=== PATIENT | female | born 1980 | race Caucasian/White ===

== ENCOUNTER 2016-08-22 16:37 | Emergency (ER) | payer OTHER ==
[~2016-08-22] VITALS: Ht 134.6 cm; Wt 54.5 kg
[2016-08-22 16:49] VITALS: BP 110/75; PULSE 94; RESP 20; O2SAT 98
[2016-08-22 17:54] LABS: APPEARANCE,URINE CLEAR (CLEAR,HAZY); COLOR,URINE YELLOW (YELLOW); OCCULT BLOOD,URINE NEGATIVE (NEGATIVE); PH,URINE 5.5 (5.0-8.0); UROBILINOGEN,URINE NORMAL (NORMAL)
--- NOTE | 2016-08-22 18:12 | ED.REPORT ---
HPI-Trauma Minor / Fall Date of Service Aug 22, 2016 ED Provider: Jem Whitney DO Pt is a 35 year old female with a history of spinal stenosis and dwarfism who presents to the ED complaining of low back pain after multiple ground falls yesterday and today. She denies decreased urination, bowel incontinence, decreased leg sensation, difficult walking, and any other symptoms. The pt reports that she fell 2x yesterday, and 2x today because her leg gave out, prompting her to call her nurse. She was advised to come to the ER. Pt reports that the pain is currently rating at 5/10, but is normally 3/10. Nursing Notes Stated Complaint: GLF- SPINAL STENOSIS Chief Complaint: Multiple Trauma/Fall Nursing Notes Reviewed: Yes Allergies: Coded Allergies: latex (Verified Allergy, Severe, rash, 08/22/16) naproxen (Verified Allergy, Severe, hallucinations, 08/22/16) sumatriptan (Verified Allergy, Severe, HTN, 08/22/16) General Time Seen by MD: 18:11 Chief Complaint Fall Hx Obtained From: Patient Arrived By: Walk-in Onset Occurred: Yesterday Symptom Duration: Intermittent Severity: Current: Pain level 5 out of 10 Severity: Maximum: Moderate Recent Healthcare: No recent doctor visit, No recent hospitalization Similar Sx Previous: Yes Past Medical History Past Medical History Spinal stenosis Dwarfism Asthma Denies: Congestive heart failure, Diabetes mellitus, Hypertension Past Surgical History Bilateral legs Left arm Left thumb Jaw Smoking History Unknown if Ever Smoker Social History Alcohol Use: Denies alcohol use Drug Use: Denies drug use Ambulatory Status Independent Review of Systems Constitutional: Denies: Fever Respiratory: Denies: Non-productive cough, Shortness of breath Musculoskeletal: Reports: Back pain, Denies: Extremity pain Complete sys rev & neg: except as marked. Physical Exam Initial Vital Signs Vital Signs (First) Date Time Temp Pulse Resp B/P Pulse Ox O2 Delivery O2 Flow Rate FiO2 08/22/16 16:49 36.6 94 20 110/75 98 Room Air Initial VS: Reviewed Head / Eyes: Atraumatic, Normocephalic, PERRL ENT: Mucous membranes moist, Conjunctiva normal, No scleral icterus Respiratory: Breath sounds normal, Clear to auscultation, No respiratory distress Cardiovascular: Regular rate & rhythm, Heart sounds normal, Intact distal pulses Abdomen / GI: Soft, Non-tender Extremities: Vascular intact, Neuro intact Skin: Warm, Dry, No cyanosis Neurologic: Alert, Oriented, Nonfocal Psychiatric: Mood/affect normal, Behavior normal General/Constitutional: Awake, Alert, Cooperative, Not toxic appearing Neck: Atraumatic, Full range of motion Back: Full range of motion Low back pain but no mylopathy. Interpretation & Diagnostics Lab Results Interpretation Test 08/22/16 17:33 Urine Color Yellow (YELLOW) Urine Appearance Clear (CLEAR,HAZY) Urine pH 5.5 (5.0-8.0) Urine Specific Talent 1.015 (1.003-1.035) Urine Protein Negativemg/dL (NEG,TRACE) Urine Glucose (UA) Negativemg/dL (NEGATIVE) Urine Ketones Negativemg/dL (NEGATIVE) Urine Occult Blood Negative (NEGATIVE) Urine Nitrite Negative (NEGATIVE) Urine Bilirubin Negative (NEGATIVE) Urine Urobilinogen Normalmg/dL (NORMAL) Urine Leukocyte Esterase Negative (NEGATIVE) Urine RBC 0-2/hpf (0-2) Urine WBC 0-5/hpf (0-5) Urine Epithelial Cells Occasional/hpf (NONE-MOD) Urine Crystals None seen (NONE SEEN) Urine Bacteria Few/hpf (NONE-FEW) Urine Hyaline Casts None/lpf (NONE) Urine Granular Casts None seen (NONE SEEN) Urine Waxy Casts None seen (NONE SEEN) Urine Red Blood Cell Casts None seen (NONE SEEN) Urine White Blood Cell Casts None seen (NONE SEEN) Urine Mucus Present (None Seen) Urine Trichomonas None seen (NONE SEEN) Urine Yeast None (NONE SEEN) Urinalysis Comment None Urine Culture Reflexed Not indicated X-Ray Interpretation Xray Interpretation: IMPRESSION: No acute fractures Dictated by: Phillip Salomon M.D. on 08/22/2016 at 18:40 Study Performed: LUMBAR SPINE, 2 or 3 VIEW Interpretation / Wet Read by: Interpret - Radiologist Re-Eval/Medical Decision Med Decision/Clinical Course No signs of cord syndrome or myelopathy. Low risk for infection. No IMDA, point tenderness or fever. xray normal. Pain controlled well with Toradol. Short course of Arcadia for break through pain. Close follow up. Routine opiate warnings given. Source of Hx: Old records Re-Evaluation/Progress : Time of Eval: 19:05 Patient Status: Condition improved Re-Evaluation/Progress Note: Pt rechecked. She is feeling better with her treatment. Informed pt of plan for discharge. Pt understands and agrees with plan for discharge. F/U instructions and RTER warnings given. All questions addressed. Counseled Regarding: Diagnosis, Lab results, Need for follow-up, When/why to return to ED Discharge & Departure Shift Change Sign-Out Response to Therapy: Improved Impression: Primary Impression: Fall Encounter type: initial encounter Qualified Code: W19.XXXA - Unspecified fall, initial encounter Additional Impressions: Low back pain Chronicity: unspecified Back pain laterality: unspecified Sciatica presence : unspecified whether sciatica present Qualified Code: M54.5 - Low back pain Spinal stenosis Spinal region: unspecified Qualified Code: M48.00 - Spinal stenosis, site unspecified Disposition: Home Discharge Condition All VS Reviewed: Yes Condition: Stable Patient Instructions: Fall Prevention (ED), Lumbar Spinal Stenosis (ED) Additional Instructions: Your x-rays did not show any signs of fracture, and there are not signs that you have cord syndrome. Take Motrin for the pain as directed. Take Arcadia 1-2 every 6 hours as needed. Do not drive or drink alcohol or consume acetaminophen while on Arcadia. This is an opiate and can be habit forming , so use it sparingly. Call your doctor tomorrow for a follow up appointment. Return to the Emergency Department for any new or worsening symptoms. Referrals: OTHER,PHYSICIAN (PCP) [facility] [place] Attestation Portions of this note were transcribed by Kennedi Winchester. I, Dr. Whitney personally performed the history, physical exam and medical decision-making; I reviewed and confirmed the accuracy of the information in the transcribed note. Signed by: Tayler Huang, 08/22/16 and 19:30. copies to: [facility] Jme Whitney DO Aug 22, 2016 18:12 Kennedi Mckeon Aug 22, 2016 18:20
--- NOTE | 2016-08-22 18:49 | DRSVH ---
PROCEDURE: X-RAY LUMBAR SPINE, 2 OR 3 VIEW INDICATIONS: fall, spinal stenosis, low back pain TECHNIQUE: 3 views of the lumbar spine were acquired. COMPARISON: None. FINDINGS: Bones: Soft tissues: Overlying bowel gas pattern is normal. No suspicious soft tissue calcifications. IMPRESSION: No acute fractures Dictated by: Phillip Salomon M.D. on 08/22/2016 at 18:40 Approved by: Phillip Salomon M.D. on 08/22/2016 at 18:41
[2016-08-22 19:10] VITALS: BP 115/71; PULSE 90; RESP 18; O2SAT 99
[2016-08-22 19:21] VITALS: BP 115/71; PULSE 90; RESP 18; O2SAT 99
== END 2016-08-22 19:22 | disposition home or self-care (01) ==
LOC: SED 16:37
DX: M54.5 Low back pain (principal); W18.39XA Other fall on same level, initial encounter; Y93.89 Activity, other specified; Y92.89 Other specified places as the place of occurrence of the external cause; Y99.8 Other external cause status; M48.00 Spinal stenosis, site unspecified; J45.909 Unspecified asthma, uncomplicated; E34.3 Short stature due to endocrine disorder; Z88.8 Allergy status to other drugs, medicaments and biological substances; Z91.040 Latex allergy status
CPT/HCPCS: 72100; 81000; 81025; 96372; 99284; J1885